=== PATIENT | female | born 1965 | race Two or more races ===

== ENCOUNTER 2024-11-06 10:00 | Day surgery (SDC) | payer OTHER ==
[2024-11-05 09:51] LABS: BASO % 0.8 % (0.1-1.2); EOS # 0.10 (0.04-0.54); EOS % 2.0 % (0.7-7.0); LYMPH # 1.48 (1.18-3.74); LYMPH % 30.1 % (19.3-53.1); MEAN PLATELET VOLUME 11.90 fl (9.4-12.4); MONO # 0.37 (0.24-0.82); MONO % 7.5 % (4.7-12.5); NEUT # 2.91 (1.56-6.13); NEUT % 59.4 % (34.0-71.1); RED CELL DISTRIBUTION WIDTH 13.3 % (11.6-14.4)
[2024-11-05 10:01] LABS: URINE APPEARANCE Clear; URINE BILIRRUBIN Negative (NEGATIVE); URINE BLOOD Trace; URINE COLOR Yellow; URINE GLUCOSE Negative (NEGATIVE); URINE KETONE Negative (NEGATIVE); URINE LEUKOCYTE Negative; URINE NITRATE Negative; URINE PROTEIN Negative (NEGATIVE); URINE UROBILINOGEN 0.2 E.U./dl
[2024-11-05 10:06] LABS: URINE BACTERIA 14.3 uL (0.0-1933); URINE EPITHELIAL CELLS 9.9 uL (0.0-38.8); URINE RBC 11.8 uL (0.0-20.8); URINE WBC 7.9 uL (0.0-23.2)
[2024-11-05 10:09] LABS: URINE CAST 0.00 uL (0.0-1.40)
[2024-11-05 10:22] LABS: INR 1.08
[2024-11-05 10:29] LABS: COVID-19 AG NEGATIVE (NEGATIVE)
[2024-11-05 10:46] LABS: ALT/SGPT 29.0 U/L (12-78); AST/SGOT 21.0 U/L (15-37); BILIRUBIN TOTAL 0.63 mg/dL (0.3-1.2); BUN CREA RATIO 30.0 (7.0-25.0); CREATININE SERUM 0.56 mg/dL (0.55-1.02); GFR 110.05; GLOBULINA 3.2 G/DL (2.4-3.5); GLUCOSE FASTING 80.0 mg/dL (65-100); OSMOLALITY SERUM 285.0 MOSM/KG (275-295)
[2024-11-05 12:26] VITALS: BP 121/78
[~2024-11-06] VITALS: Ht 154.9 cm; Wt 57.2 kg
[~2024-11-06 10:00] MED LIST: ANASTROZOLE1 MG; PLAQUENIL
[2024-11-06] MEDS ORDERED: CEFAZOLIN SODIUM 1,000 MG VIAL ONE (13:49)
[2024-11-06] MEDS ORDERED: CHLORHEXIDINE GLUCONATE 120 ML BOTTLE TOP ONE (15:44)
== END 2024-11-06 19:55 | disposition home or self-care (01) ==
LOC: CIR.AMB 10:00 → EDBD 15:00 → CIR.AMB 19:55
PROVIDERS: ATTEND Surgery
DX: C50.411 Malignant neoplasm of upper-outer quadrant of right female breast (principal); C77.3 Secondary and unspecified malignant neoplasm of axilla and upper limb lymph nodes